=== PATIENT | female | born 1955 | race Caucasian/White ===

== ENCOUNTER → 2016-09-02 | Outpatient (CLI) | payer MEDICAID | LOC: LAB 10:05 | DX: E05.90 Thyrotoxicosis, unspecified without thyrotoxic crisis or storm (principal) ==

== ENCOUNTER → 2017-03-30 | Outpatient (CLI) | payer MEDICAID ==
[2017-03-30 09:47] LABS: HEMATOCRIT 42.1 % (37.0-47.0); MEAN PLATELET VOLUME 9.4 fl (7.4-10.4); RED BLOOD COUNT 4.68 M/mm3 (4.10-5.30); RED CELL DISTRIBUTION WIDTH 14.2 % (11.5-14.5); WHITE BLOOD COUNT 9.9 K/mm3 (4.8-10.8)
[2017-03-30 10:01] LABS: ALBUMIN 3.8 g/dL (3.5-5.0); BUN/CREATININE RATIO 17.2 (6.0-26.0); CALCIUM 8.9 mg/dL (8.4-10.2); POTASSIUM 4.5 mmol/L (3.6-5.0); TOTAL BILIRUBIN 0.4 mg/dL (0.2-1.3); TOTAL PROTEIN 6.8 g/dL (6.3-8.2)
== END ==
LOC: LAB 09:37
PROVIDERS: Nurse Practitioner Family
DX: Z01.419 Encounter for gynecological examination (general) (routine) without abnormal findings (principal); E78.2 Mixed hyperlipidemia; G89.4 Chronic pain syndrome; F32.9 Major depressive disorder, single episode, unspecified

== ENCOUNTER → 2017-10-19 | Outpatient (CLI) | payer MEDICARE, MEDICAID | LOC: RAD 10:46 | DX: M51.16 Intervertebral disc disorders with radiculopathy, lumbar region (principal); M41.86 Other forms of scoliosis, lumbar region ==

== ENCOUNTER → 2017-11-16 | Outpatient (CLI) | payer MEDICARE, MEDICAID | LOC: LAB 09:54 | DX: M54.5 Low back pain (principal); M17.0 Bilateral primary osteoarthritis of knee ==

== ENCOUNTER → 2018-02-17 | Outpatient (CLI) | payer MEDICARE, MEDICAID ==
[2018-02-17 11:36] LABS: ALBUMIN 4.2 g/dL (3.5-5.0); CALCIUM 9.4 mg/dL (8.4-10.2); POTASSIUM 4.4 mmol/L (3.6-5.0); TOTAL BILIRUBIN 0.6 mg/dL (0.2-1.3); TOTAL PROTEIN 6.8 g/dL (6.3-8.2)
[2018-02-17 12:00] LABS: EOS # 0.2 (0.04-0.40); EOS % 2.1 % (1.0-5.0); HEMATOCRIT 42.8 % (37.0-47.0); HEMOGLOBIN 14.1 g/dL (12.5-16.0); MEAN CELL VOLUME 89 fl (78-100); MEAN CORPUSCULAR HEMOGLOBIN 29 pg (27-31); MEAN CORPUSCULAR HGB CONC 33 g/dL (33-37); MEAN PLATELET VOLUME 10.2 fl (7.4-10.4); MONO # 0.7 (0.20-0.80); NEU # 4.9 (1.40-6.50); PLATELET COUNT 396 K/mm3 (130-400); RED CELL DISTRIBUTION WIDTH 14.1 % (11.5-14.5); WHITE BLOOD COUNT 8.9 K/mm3 (4.8-10.8)
[2018-02-17 13:13] LABS: ERYTHROCYTE SEDIMENTATION RATE 8 mm/hr (0-30)
== END ==
LOC: LAB 10:50
PROVIDERS: Internal Medicine
DX: Z12.11 Encounter for screening for malignant neoplasm of colon (principal); F32.9 Major depressive disorder, single episode, unspecified; E78.5 Hyperlipidemia, unspecified; K90.9 Intestinal malabsorption, unspecified; E03.9 Hypothyroidism, unspecified

== ENCOUNTER → 2018-02-28 | Outpatient (CLI) | payer MEDICARE, MEDICAID | LOC: MAMMO 09:50 | DX: Z12.31 Encounter for screening mammogram for malignant neoplasm of breast (principal) ==

== ENCOUNTER → 2018-06-13 | Outpatient (CLI) | payer MEDICARE, MEDICAID ==
[~2018-06-13] VITALS: Ht 162.6 cm; Wt 90.0 kg
[~2018-06-13] MED LIST: BENTYL 20MG20 MG/TAB PO; CYCLOBENZAPRINE10 M1 PO; DILAUDID4 M1 PO; FLUTICASON0.05 MG/AC NS; MELOXICAM15 MG PO; PHENERGAN 25 TA25 MG PO; PROAIR HFA0.09 MG/AC IH; SIMVASTATIN20 M1 PO; TAPAZOLE 5MG TAB5 MG PO; WELLBUTRIN XL300 M1 PO; ZYRTEC10 M3 PO
[2018-06-13 10:15] VITALS: BP 104/72
== END ==
LOC: RAD 08:56 → AMSURD 08:56 → LAB 08:56
DX: R06.02 Shortness of breath (principal); K90.9 Intestinal malabsorption, unspecified; Z98.890 Other specified postprocedural states

== ENCOUNTER → 2018-06-20 | Outpatient (CLI) | payer MEDICARE, MEDICAID ==
[2018-06-13 10:15] VITALS: BP 104/72
== END ==
LOC: RAD 09:06 → MAMMO 09:15
DX: Z13.820 Encounter for screening for osteoporosis (principal); M81.0 Age-related osteoporosis without current pathological fracture; M85.851 Other specified disorders of bone density and structure, right thigh; M85.88 Other specified disorders of bone density and structure, other site

== ENCOUNTER → 2020-01-24 | Outpatient (CLI) | payer MEDICARE, MEDICAID ==
[2018-06-13 10:15] VITALS: BP 104/72
[2020-01-24 12:47] LABS: POTASSIUM 4.1 mmol/L (3.5-5.1)
[2020-01-24 12:48] LABS: ALBUMIN 3.9 g/dL (3.4-4.8)
[2020-01-24 12:49] LABS: CALCIUM 8.9 mg/dL (8.3-10.5)
[2020-01-24 12:50] LABS: TOTAL PROTEIN 6.4 g/dL (6.2-8.1)
[2020-01-24 12:52] LABS: TOTAL BILIRUBIN 0.3 mg/dL (0.2-1.2)
[2020-01-24 15:40] LABS: EOS # 0.2 (0.04-0.40); EOS % 2.5 % (1.0-5.0); HEMATOCRIT 42.5 % (37.0-47.0); HEMOGLOBIN 13.6 g/dL (12.5-16.0); LYMPH# 2.4 (1.50-4.00); MEAN CELL VOLUME 91 fl (78-100); MEAN CORPUSCULAR HEMOGLOBIN 29 pg (27-31); MEAN CORPUSCULAR HGB CONC 32 g/dL (33-37); MEAN PLATELET VOLUME 9.3 fl (7.4-10.4); MONO # 0.8 (0.20-0.80); NEU # 4.1 (1.40-6.50); PLATELET COUNT 391 K/mm3 (130-400); RED BLOOD COUNT 4.67 M/mm3 (4.10-5.30); RED CELL DISTRIBUTION WIDTH 13.7 % (11.5-14.5); WHITE BLOOD COUNT 7.5 K/mm3 (4.8-10.8)
[2020-01-24 15:41] LABS: ERYTHROCYTE SEDIMENTATION RATE 14 mm/hr (0-30)
== END ==
LOC: LAB 12:05
PROVIDERS: Internal Medicine
DX: Z12.11 Encounter for screening for malignant neoplasm of colon (principal); J44.9 Chronic obstructive pulmonary disease, unspecified; E78.5 Hyperlipidemia, unspecified; E03.9 Hypothyroidism, unspecified; M81.0 Age-related osteoporosis without current pathological fracture; K90.9 Intestinal malabsorption, unspecified; R73.02 Impaired glucose tolerance (oral)

== ENCOUNTER → 2021-04-03 | Outpatient (CLI) | payer MEDICARE, MEDICAID ==
[2021-04-03 16:04] LABS: BASO # 0.04 K/mm3 (0.02-0.10); EOS # 0.19 K/mm3 (0.04-0.40); HEMATOCRIT 43.3 % (37.0-47.0); LYMPH# 2.96 K/mm3 (1.50-4.00); MEAN CELL VOLUME 90 fl (78-100); MEAN CORPUSCULAR HEMOGLOBIN 29 pg (27-31); MEAN CORPUSCULAR HGB CONC 32 g/dL (33-37); MEAN PLATELET VOLUME 9.1 fl (7.4-10.4); MONO # 0.84 K/mm3 (0.20-0.80); NEU # 5.38 K/mm3 (1.40-6.50); PLATELET COUNT 398 K/mm3 (130-400); RED BLOOD COUNT 4.79 M/mm3 (4.10-5.30); RED CELL DISTRIBUTION WIDTH 13.2 % (11.5-14.5); WHITE BLOOD COUNT 9.4 K/mm3 (4.8-10.8)
[2021-04-03 16:11] LABS: ALBUMIN 3.8 g/dL (3.4-4.8); POTASSIUM 4.1 mmol/L (3.5-5.1)
[2021-04-03 16:12] LABS: CALCIUM 9.5 mg/dL (8.3-10.5)
[2021-04-03 16:14] LABS: TOTAL PROTEIN 6.6 g/dL (6.2-8.1)
[2021-04-03 16:15] LABS: TOTAL BILIRUBIN 0.2 mg/dL (0.2-1.2)
[2021-04-03 17:15] LABS: ERYTHROCYTE SEDIMENTATION RATE 22 mm/hr (0-30)
== END ==
LOC: LAB 15:39
PROVIDERS: Internal Medicine
DX: E03.4 Atrophy of thyroid (acquired) (principal); K90.9 Intestinal malabsorption, unspecified; E78.2 Mixed hyperlipidemia; Z20.822 Contact with and (suspected) exposure to COVID-19

== ENCOUNTER → 2021-06-12 | Outpatient (CLI) | payer MEDICARE, MEDICAID | LOC: MAMMO 09:26 | DX: Z12.31 Encounter for screening mammogram for malignant neoplasm of breast (principal) ==

== ENCOUNTER → 2021-10-09 | Outpatient (CLI) | payer MEDICARE, MEDICAID ==
[2021-10-09 12:08] LABS: BASO # 0.04 K/mm3 (0.02-0.10); EOS # 0.28 K/mm3 (0.04-0.40); EOS % 2.7 % (1.0-5.0); HEMATOCRIT 43.2 % (37.0-47.0); LYMPH# 3.34 K/mm3 (1.50-4.00); MEAN CELL VOLUME 91 fl (78-100); MEAN CORPUSCULAR HEMOGLOBIN 30 pg (27-31); MEAN CORPUSCULAR HGB CONC 32 g/dL (33-37); MEAN PLATELET VOLUME 9.6 fl (7.4-10.4); MONO # 0.97 K/mm3 (0.20-0.80); NEU # 5.55 K/mm3 (1.40-6.50); PLATELET COUNT 432 K/mm3 (130-400); RED BLOOD COUNT 4.75 M/mm3 (4.10-5.30); RED CELL DISTRIBUTION WIDTH 13.1 % (11.5-14.5); WHITE BLOOD COUNT 10.2 K/mm3 (4.8-10.8)
[2021-10-09 12:10] LABS: POTASSIUM 3.8 mmol/L (3.5-5.1)
[2021-10-09 12:12] LABS: CALCIUM 9.2 mg/dL (8.3-10.5)
[2021-10-09 12:13] LABS: TOTAL PROTEIN 6.8 g/dL (6.2-8.1)
[2021-10-09 12:15] LABS: TOTAL BILIRUBIN 0.2 mg/dL (0.2-1.2)
== END ==
LOC: LAB 11:43
PROVIDERS: Internal Medicine
DX: Z12.31 Encounter for screening mammogram for malignant neoplasm of breast (principal); E78.2 Mixed hyperlipidemia; E03.4 Atrophy of thyroid (acquired); K90.9 Intestinal malabsorption, unspecified; G89.4 Chronic pain syndrome; J44.9 Chronic obstructive pulmonary disease, unspecified; M85.80 Other specified disorders of bone density and structure, unspecified site; G89.29 Other chronic pain

== ENCOUNTER → 2022-04-09 | Outpatient (CLI) | payer MEDICARE, MEDICAID ==
[2022-04-09 14:41] LABS: BASO # 0.02 K/mm3 (0.02-0.10); EOS % 2.4 % (1.0-5.0); HEMOGLOBIN 14.9 g/dL (12.5-16.0); MEAN CELL VOLUME 90 fl (78-100); MEAN CORPUSCULAR HEMOGLOBIN 30 pg (27-31); MEAN CORPUSCULAR HGB CONC 33 g/dL (33-37); MEAN PLATELET VOLUME 9.2 fl (7.4-10.4); MONO # 0.53 K/mm3 (0.20-0.80); NEU # 5.41 K/mm3 (1.40-6.50); PLATELET COUNT 421 K/mm3 (130-400); RED BLOOD COUNT 4.99 M/mm3 (4.10-5.30); RED CELL DISTRIBUTION WIDTH 13.1 % (11.5-14.5); WHITE BLOOD COUNT 8.3 K/mm3 (4.8-10.8)
[2022-04-09 14:49] LABS: ALBUMIN 4.2 g/dL (3.4-4.8); POTASSIUM 4.2 mmol/L (3.5-5.1)
[2022-04-09 14:50] LABS: CALCIUM 9.3 mg/dL (8.3-10.5)
[2022-04-09 14:52] LABS: TOTAL PROTEIN 6.9 g/dL (6.2-8.1)
[2022-04-09 14:54] LABS: TOTAL BILIRUBIN 0.3 mg/dL (0.2-1.2)
[2022-04-09 16:28] LABS: ERYTHROCYTE SEDIMENTATION RATE 15 mm/hr (0-30)
[2022-04-10 00:05] LABS: T3 FREE 2.7 pg/mL (1.7-3.7)
== END ==
LOC: LAB 14:18
PROVIDERS: Internal Medicine
DX: D12.6 Benign neoplasm of colon, unspecified (principal); Z12.39 Encounter for other screening for malignant neoplasm of breast; J44.9 Chronic obstructive pulmonary disease, unspecified; M85.80 Other specified disorders of bone density and structure, unspecified site; E05.90 Thyrotoxicosis, unspecified without thyrotoxic crisis or storm; K90.9 Intestinal malabsorption, unspecified; E78.2 Mixed hyperlipidemia; G89.4 Chronic pain syndrome; G47.01 Insomnia due to medical condition; F17.200 Nicotine dependence, unspecified, uncomplicated

== ENCOUNTER → 2022-05-12 | Outpatient (CLI) | payer MEDICARE, MEDICAID | LOC: LAB 11:20 | DX: B34.9 Viral infection, unspecified (principal); J02.9 Acute pharyngitis, unspecified ==

== ENCOUNTER → 2023-10-13 | Outpatient (CLI) | payer MEDICARE ==
[2023-10-13 14:27] LABS: BASO # 0.05 K/mm3 (0.02-0.10); EOS # 0.22 K/mm3 (0.04-0.40); EOS % 2.6 % (1.0-5.0); HEMATOCRIT 42.4 % (37.0-47.0); HEMOGLOBIN 13.7 g/dL (12.5-16.0); LYMPH# 2.98 K/mm3 (1.50-4.00); MEAN CELL VOLUME 90 fl (78-100); MEAN CORPUSCULAR HEMOGLOBIN 29 pg (27-31); MEAN CORPUSCULAR HGB CONC 32 g/dL (33-37); MEAN PLATELET VOLUME 9.6 fl (7.4-10.4); MONO # 0.71 K/mm3 (0.20-0.80); NEU # 4.65 K/mm3 (1.40-6.50); PLATELET COUNT 383 K/mm3 (130-400); RED BLOOD COUNT 4.69 M/mm3 (4.10-5.30); RED CELL DISTRIBUTION WIDTH 13.4 % (11.5-14.5); WHITE BLOOD COUNT 8.6 K/mm3 (4.8-10.8)
[2023-10-13 14:28] LABS: ALBUMIN 4.1 g/dL (3.4-4.8); CALCIUM 9.1 mg/dL (8.3-10.5); MAGNESIUM 2.04 mg/dL (1.60-2.60); TOTAL BILIRUBIN 0.4 mg/dL (0.2-1.2); TOTAL PROTEIN 6.6 g/dL (6.2-8.1)
[2023-11-17 15:02] LABS: T3 FREE 3.06
== END ==
LOC: LAB 12:10
PROVIDERS: Internal Medicine
DX: E78.2 Mixed hyperlipidemia (principal); R73.9 Hyperglycemia, unspecified; E05.90 Thyrotoxicosis, unspecified without thyrotoxic crisis or storm; M85.80 Other specified disorders of bone density and structure, unspecified site